=== PATIENT | female | born 1990 | race Two or more races ===

== ENCOUNTER → 2025-06-18 | Outpatient (CLI) | payer MEDICAID, SELFPAY ==
--- NOTE | 2025-06-18 09:00 | XR_ITS ---
Examination: Esophagram standard Upright PA chest single view Soft tissue lateral neck single view Date and time: June 18, 2025 0911 hours INDICATIONS: Difficulty swallowing heartburn 6 months. TECHNIQUE AND FINDINGS: Upright PA chest single view demonstrates normal heart size, lungs are clear Upright soft tissue lateral neck demonstrates normal epiglottis Patient swallowed thin barium with primary peristaltic esophageal waves noted Moderate continuous gastroesophageal reflux. There is no stricture at the gastroesophageal junction No constricting esophageal lesion Fluoroscopy 0.19 minutes 18 spot fluoroscopic films IMPRESSION: Moderate continuous gastroesophageal reflux
== END | disposition home or self-care (01) ==
LOC: CDIM 08:43
PROVIDERS: PCP Nurse Practitioner Family; Referring Provider Student in an Organized Health Care Education/Training Program; Visit Provider Student in an Organized Health Care Education/Training Program
DX: K21.9 Gastro-esophageal reflux disease without esophagitis (principal)
CPT/HCPCS: 74220; A4649